=== PATIENT | male | born 1990 | race Two or more races ===

== ENCOUNTER 2019-10-09 00:14 | Emergency (ER) | payer OTHER ==
[2019-10-09] MEDS ORDERED: ACETAMINOPHEN EXTRA STRENGTH 500 MG TABLET ONE (00:47)
== END 2019-10-09 01:41 | disposition home or self-care (01) ==
LOC: EDH 00:14
DX: J02.8 Acute pharyngitis due to other specified organisms (principal); F43.10 Post-traumatic stress disorder, unspecified; F32.9 Major depressive disorder, single episode, unspecified; F41.9 Anxiety disorder, unspecified; Z90.49 Acquired absence of other specified parts of digestive tract; Z72.0 Tobacco use
CPT/HCPCS: 87880

== ENCOUNTER 2020-06-29 12:26 | Emergency (ER) | payer OTHER ==
[2020-06-29] MEDS ORDERED: KETOROLAC TROMETHAMINE 30MG/ML ONE (13:04)
== END 2020-06-29 13:58 | disposition home or self-care (01) ==
LOC: EDH 12:26
DX: S93.402A Sprain of unspecified ligament of left ankle, initial encounter (principal); F41.9 Anxiety disorder, unspecified; F32.9 Major depressive disorder, single episode, unspecified; Z90.49 Acquired absence of other specified parts of digestive tract; X58.XXXA Exposure to other specified factors, initial encounter; Y93.39 Activity, other involving climbing, rappelling and jumping off; Y92.89 Other specified places as the place of occurrence of the external cause; Y99.8 Other external cause status
CPT/HCPCS: 73610; 96372; 99283; J1885

== ENCOUNTER 2023-04-20 18:16 | Emergency (ER) | payer OTHER ==
[~2023-04-20] VITALS: Ht 185.4 cm; Wt 74.8 kg
[2023-04-20 20:57] VITALS: BP 149/75; PULSE 85; RESP 18; O2SAT 98
[2023-04-20] MEDS ORDERED: CYCL-309 PO (21:16)
[2023-04-20] MEDS ORDERED: GABA300C PO (21:16)
[2023-04-20] MEDS ORDERED: IBUP-1493 PO (21:16)
== END 2023-04-20 21:30 | disposition home or self-care (01) ==
LOC: EDH 18:16
DX: M54.59 Other low back pain (principal); M79.606 Pain in leg, unspecified; F41.9 Anxiety disorder, unspecified; F32.A Depression, unspecified